=== PATIENT | male | born 1990 | race Caucasian/White ===

== ENCOUNTER 2025-02-17 18:59 | Emergency (ER) | payer BC, SELFPAY ==
[2025-02-17 19:14] VITALS: BP 153/83; PULSE 71; RESP 24; TEMP 36.2; O2SAT 96
--- NOTE | 2025-02-17 19:18 | ED.URI ---
HPI - URI/Sore Throat General Chief Complaint: Upper Respiratory Infection Stated Complaint: strep/sinus patient presents to the [facility] with complaints of nasal congestion, sinus pain, headache, productive cough, and sore throat that began about 8 days ago. Patient reports symptoms significantly worse today. Of note patient did have tonsils removed about 18 months ago and today upon waking this feels like strep from previous episodes. Reports using ucap-zoh-bncfrrm cough cold medication with minimal relief of symptoms. Denies fever, chills, body aches, shortness of breath, nausea, vomiting, diarrhea. Related Data Home Medications ?Medication ?Instructions ?Recorded ?Confirmed ?Last Taken ?Type lisinopril 5 mg tablet 5 mg PO DAILY 02/17/25 02/17/25 Unknown History Allergies Allergy/AdvReac Type Severity Reaction Status Date / Time No Known Allergies Allergy Verified 02/17/25 19:12 Review of Systems Constitutional: Constitutional: Reports as per HPI, Denies chills, Reports fatigue, Denies fever(s) and Denies weakness Eyes: Eyes: Reports no additional eye complaints ENT: Reports as per HPI, Denies vertigo, Denies dizziness, Reports nasal congestion and Reports sore throat Comments: Sinus pain, nasal drainage Respiratory: Respiratory: Reports as per HPI, Reports chest congestion, Reports cough, Denies dyspnea and Denies wheezing Gastrointestinal: Gastrointestinal: Reports no additional gastrointestinal complaints Genitourinary: Genitourinary: Reports no additional male genitourinary complaints Musculoskeletal: Musculoskeletal: Reports as per HPI, Denies back pain and Denies myalgias Integumentary/Breasts: Skin/Breast: Reports as per HPI, Denies pruritus, Denies erythema and Denies rash Neurologic: Reports as per HPI, Denies vertigo, Denies dizziness, Reports headache(s), Denies numbness and Denies weakness Psychiatric: Psychiatric: Reports no additional psychiatric complaints Endocrine: Endocrine: Reports no additional endocrine complaints Hematologic/Lymphatic: Hematologic/Lymphatic: Reports no additional hematologic/lymphatic complaints Allergic/Immunologic: Allergic/Immunologic: Reports no additional allergic/immunologic complaints [facility] Social History Social History Smoking status: Never smoker Alcohol intake: current Substance use: never Substance use type: does not use Living arrangements: with family Occupation/Education: occupation Gender identity (if verbalized by the patient): Male Exam Const: General: healthy appearing and no acute distress Nutritional Appearance: well nourished Orientation/consciousness: patient oriented x3 Limitations: no limitations HENMT: Head: normal to inspection Ears: external ears normal and TM's abnormal bilaterally ( mild dullness bilaterally no erythema noted) Face/Nose/Sinus: Normal external nose present, nares abnormal and no nasal discharge noted Face and sinus: normal facial exam, sinuses tender and sinus tenderness ( bilateral) maxillary Mouth: Yes Normal oral and palatal mucosa present, Yes lip normal and Yes moist mucous membranes Throat: posterior oropharynx abnormal and uvula midline ( erythematous and edematous) Neck: Neck: normal visual inspection and no lymphadenopathy Resp: Effort & Inspection: normal respiratory effort Auscultation: clear to auscultation bilaterally Cardio: Rate: regular rate Rhythm: regular rhythm Skin: General skin exam: normal color Rashes: no rashes Wounds: no wounds Neuro: General: patient oriented x3 Speech: normal speech Gait exam (Neuro): Normal gait present Psych: Mental Status: mental status grossly normal Affect: normal affect Attitude: cooperative Course Course Level of Care: Express Care Visit Vital Signs Vital signs: Vital Signs Temperature 97.1 F L 02/17/25 19:14 Pulse Rate 71 02/17/25 19:14 Respiratory Rate 24 H 02/17/25 19:14 Blood Pressure 153/83 H 02/17/25 19:14 Pulse Oximetry 96 02/17/25 19:14 Oxygen Delivery Room Air 02/17/25 19:14 Temperature 97.1 F L 02/17/25 19:14 Pulse Rate 71 02/17/25 19:14 Respiratory Rate 24 H 02/17/25 19:14 Blood Pressure 153/83 H 02/17/25 19:14 Pulse Oximetry 96 02/17/25 19:14 Oxygen Delivery Room Air 02/17/25 19:14 [facility] Narrative Medical decision making narrative: strep negative 8 days of symptoms likely sinus infection will treat with amoxicillin no culture needed The patient was evaluated by myself in the express care. History is obtained from patient who is an independent historian and physical exam was performed. Available medical records were reviewed at this time. Exam findings show no acute concerns or changes; patient is non-toxic appearing and is in no distress. Patient is appropriate for outpatient treatment and follow-up. I have evaluated and discussed social determinants of health with the patient that could potentially impact subsequent diagnosis and treatment plans. Differential diagnosis and treatment plan were discussed with the patient. Patient agrees with discussion and after shared medical decision making agrees with plan of care. All questions were answered to the patient's satisfaction. Differential Diagnosis Differential Diagnosis: otitis media, sinusitis, upper respiratory infection, strep Medical Records I have reviewed the following patient records and this information was taken into consideration when formulating the assessment and plan.: previous labs, previous ER visits, previous hospitalizations and previous clinic visits Lab Data MDM Lab Attestation statement: I personally reviewed the patient's lab results. Lab results narrative: strep negative, will treat patient no need for culture Discharge Plan Discharge Clinical Impression: Sinusitis Patient Disposition: Home Condition: Stable Instructions: Antibiotic Form, Strep Throat (ED) Additional Instructions: Take the antibiotics as directed for the entire course. Do not miss any doses. What you are taking antibiotics and is recommended to take a probiotic or have yogurt daily to return the good gut bacteria to your system. This can also help with acute diarrhea while taking antibiotics. It can take 24-48 hours for the antibiotics to start to relieve your symptoms continue to take these medications to help with various symptoms: Tylenol or Motrin for pain, headache, or fever Flonase/fluticasone or Nasacort/triamcinolone nasal spray- helps with congestion and nasal drainage. Sudafed/pseudoephedrine helps with sinus pain and congestion. Caution with high blood pressure. Use a humidifier or vaporizer at night. Drink plenty of water. 8-10 glasses per day. Mucinex/guaifenesinas directed and be sure to take with 8oz of water. Warm compresses over the forehead and cheeks to promote sinus drainage. Return to urgent care or go to the ER for new or worsening symptoms. Follow up with Primary provider if not improved after 1 week. Patient Language: [place] Citizen Prescriptions: New amoxicillin-pot clavulanate 875-125 mg tablet 1 tablet PO Q12H Qty: 20 0RF No Action lisinopril 5 mg tablet 5 mg PO DAILY lorazepam [Ativan] 2 mg tablet 1 mg PO TID PRN (Reason: panic attack(s)) Qty: 14 0RF Follow-up/Referrals: Heath Love MD [Primary Care Provider, [facility][1]] Time of Disposition: 19:29
[2025-02-17 19:21] LABS: EDSTREPNEGPOS1 Negative (Negative)
--- OUTSIDE RECORDS SUMMARY | 2025-02-17 19:39 | XMS_ITS | Clinical Summary ---
Author Organization [facility] Address [facility] [address] [place] [address] Care Team Providers Care Boilermaking Supervisor Name Role Phone None, Provider MD Primary Care Provider Unavaila ble Allergies No known active allergies Medications HYDROcodone-acet aminophen (NORCO) 5-325 MG tabletIndication s:Acute Pain < 7 Day Supply Take 1 tablet by mouth every 6 (six) hours as needed for Pain. Indications : Acute Pain < 7 Day Supply 15 tablet 06/10/2022 Active Social History Tobacco Use Types Packs/Day Years Used Date Smoking Tobacco: Never Smokeless Tobacco: Never Tobacco Cessation:Counseling Given: Not Answered Alcohol Use Standard Drinks/Week Comments Not Currently 0 (1 standard drink = 0.6 oz pur e alcohol) Sex and Gender Information Value Date Recorded Sex Assigned at Not on file Legal Sex Male 2:38 PM CDT Gender Identity Not on file Sexual Orientation Not on file Last Filed Vital Signs Vital Sign Reading Time Taken Comments Blood Pressure 126/74 06/10/2022 3:48 PM CDT Pulse 62 06/10/2022 3:48 PM CDT Temperature 36.2 C (97.2 F) 06/10/2022 2:42 PM CDT Respiratory Rate 18 06/10/2022 3:48 PM CDT Oxygen Saturation 98% 06/10/2022 3:48 PM CDT Inhaled Oxygen Concentration - - Weight 120.2 kg (265 lb) 06/10/2022 2:42 PM CDT Height 182.9 cm (6') 06/10/2022 2:42 PM CDT Body Mass Index 35.94 06/10/2022 2:42 PM CDT Plan of Treatment Health Maintenance Due Date Last Done Comments Annual Physical 1993 Hepatitis C 2008 DTaP, Tdap and Td Vaccines ( 1 - Tdap) 2009 Hepatitis B Vaccines (1 of 3 - 19+ 3-dose series) 2009 HPV Vaccines (1 - 3-dose SCD M series) 2017 COVID-19 Vaccine (3 - 2024-2 6 season) 2024 12/22/2020, 12/01/2020 Influenza Adult (#1) 2024 12/24/2019 Hepatitis A Vaccines Aged Out No long er eligible based on patient's age to complete this topic Meningococcal B Vaccine Aged Out No l onger eligible based on patient's age to complete this topic Meningococcal Vaccine Aged Out No vickie deena eligible based on patient's age to complete this topic Pneumococcal Vaccine: Pediatrics (0 to 5 Years) and At-Risk Patients (6 to 49 Years) Aged Out No longer eligible b ased on patient's age to complete this topic RSV Immunizations Under 20 Months Aged Out No longer eligible b ased on patient's age to complete this topic Insurance [employer] Care Teams Boilermaking Supervisor Relationship Specialty Start Date End Date None, Provider, MD PCP - General UNKNOWN PHYSICIAN SPECIALTY 06/10/22
--- OUTSIDE RECORDS SUMMARY | 2025-02-17 19:39 | XMS_ITS | Clinical Summary ---
Author Organization [facility] Address [address] [place] [address] Care Team Providers Care Emergency Specialist Name Role Phone Unavailable Primary Care Provider Unavailabl e Source Comments [facility] [employer],non-owned Affiliates and Associated Physician Practices is amultiple site organization consisting of ambulatory clinics and hospital sitesin [place], [place], [place] and [place]. This disclosure is being madepursuant to the Care Everywhere program and may not contain all information available regarding this patient. Last updated 17.[facility] [employer] Allergies No known active allergies Social History Tobacco Use Types Packs/Day Years Used Date Smoking Tobacco: Never Smokeless Tobacco: Never Tobacco Cessation:Counseling Given: Not Answered Alcohol Use Standard Drinks/Week Comments Never 0 (1 standard drink = 0.6 oz pur e alcohol) AUDIT-C Answer Date Recorded Q1: How often do you have a drink containing alcohol? Never 09/03/2022 Q2: How many drinks containi ng alcohol do you have on a typical day when you are drinking? Patient does not drink Q3: How often do you have si x or more drinks on one occasion? 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 SPECIALIST Gender Identity Not on file Sexual Orientation Not on file Last Filed Vital Signs Vital Sign Reading Time Taken Comments Blood Pressure 134/84 09/03/2022 10:00 PM CDT Pulse 75 09/03/2022 10:00 PM CDT Temperature 36.9 C (98.4 F) 09/03/2022 4:50 PM CDT Respiratory Rate 17 09/03/2022 9:59 PM CDT Oxygen Saturation 98% 09/03/2022 7:30 PM CDT Inhaled Oxygen Concentration - - Weight 121.6 kg (268 lb) 09/03/2022 4:50 PM CDT Height 182.9 cm (6') 09/03/2022 4:50 PM CDT Body Mass Index 36.35 09/03/2022 4:50 PM CDT Plan of Treatment Health Maintenance Due Date Last Done Comments HIV SCREENING 2005 HEPATITIS C SCREENING 06/18/2008 DTAP/TDAP/TD VACCINES (1 - Tdap) 2009 HEPATITIS B VACCINE (1 of 3 - 19+ 3-dose series) 2009 HPV VACCINE (1 - 3-dose SCDM series) 2017 DEPRESSION SCREENING 03/10/2024 COVID-19 VACCINE ( - 2024- season) 2024 12/22/2020, 12/01/2020, 11/10/2020 INFLUENZA VACCINE (#1) 2024 2, 04/13/2021, 12/24/2019, Additional history exists ZOSTER VACCINE (1 of 2) 2040 HIB VACCINE Aged Out No longer eligi ble based on patient's age to complete this topic MENINGOCOCCAL (Group B) VACCINE SHARED DECISION-MAKING Aged Out No longer eligible based on patient's age to complete this topic MENINGOCOCCAL GROUPS A/C/Y/W VACCINE Aged Out No longer eligible based on patient's age to complete this topic PNEUMOCOCCAL VACCINE Aged Out No long er eligible based on patient's age to complete this topic Insurance [employer] Liability [employer] TPL [employer] Liability
--- OUTSIDE RECORDS SUMMARY | 2025-02-17 19:39 | XMS_ITS | Clinical Summary ---
Author Organization [facility] Address [address] [place] [place] [address] Phone Care Team Providers Care Insurance Appraiser Name Role Phone Unavailable Primary Care Provider Unavailabl e Allergies No known active allergies Medications lisinopriL (PRINIVIL) 5 mg tablet Take 5 mg by mouth daily. Active HYDROcodone-james taminophen (NORCO) 5-325 mg tabletIndicatio ns:Acute left ankle pain Take 1-2 Tablets by mouth every 6 hours as needed for Moderate Pain. Max Daily Amount: 8 Tablets 40 Tablet 11/18/2024 2:02 PM CDT 11/18/2024 Active Encounters Date Type Department Care Team Description 01/05/2025 External Device Data [facility]STRACTION Provider, Abstract 01/04/2025 External Device Data [facility] Provider, Abstract 12/28/2024 External Device Data [facility] Provider, Abstract 11/18/2024 10:40 AM CDT Anesthesia Event [facility] Operating Room [address] [place] [address] Mel Hutson MD Jany, Jodi, NP 11/18/2024 10:34 AM CDT - 11/18/2024 12:05 PM CDT Surgery [facility] Operating Room [address] [place] [address] Alvin Philippe MD LEFT ANKLE HARDWARE REMOVAL 11/18/2024 8:08 AM CDT - 11/18/2024 2:40 PM CDT Hospital Encounter [facility] Pre Procedure Phase II [address] [place] [address] Alvin Philippe MD Pain due to internal orthopedic prosthetic device, initial encounter Discharge Disposition: Home or Self Care from Last 3 Months Social History Tobacco Use Types Packs/Day Years Used Date Smoking Tobacco: Never Smokeless Tobacco: Never Tobacco Cessation:Counseling Given: Not Answered Alcohol Use Standard Drinks/Week Comments Not Currently 0 (1 standard drink = 0.6 oz pur e alcohol) Feeling Safe Answer Date Recorded Are you in a relationship wi th someone who hurts you emotionally and/or physically? No 11/18/2024 Sex and Gender Information Value Date Recorded Sex Assigned at Not on file Legal Sex Male 10:33 AM CDT Gender Identity Not on file Sexual Orientation Not on file Last Filed Vital Signs Vital Sign Reading Time Taken Comments Blood Pressure 115/63 11/18/2024 2:15 PM CDT Pulse 75 11/18/2024 2:15 PM CDT Temperature 36.7 C (98 F) 11/18/2024 1:40 PM CDT Respiratory Rate 16 11/18/2024 2:15 PM CDT Oxygen Saturation 95% 11/18/2024 2:15 PM CDT Inhaled Oxygen Concentration - - Weight 127 kg (280 lb) 11/18/2024 8:47 AM CDT Height 182.9 cm (6') 11/18/2024 8:47 AM CDT Body Mass Index 37.97 11/18/2024 8:47 AM CDT Plan of Treatment Health Maintenance Due Date Last Done Comments DTAP/TDAP/TD VACCINES (3 - T d or Tdap) 09/07/2021 09/08/2011, 11/17/2008 INFLUENZA VACCINE (#1) 2024 , 01/22/2023, 01/28/2022, Additional history exists HEPATITIS B VACCINES Completed 06/24/2009, 12/30/2008, 11/21/2008 HPV VACCINES (No Doses Required) Completed Medical Devices Explanted Type Area Raw Scales Operator Device Identifier Shelf Expiration Date Model / Serial / Lot Syndesmosis Tightrope Xp Imp Sys [id number] - [id number] Implanted:Qty: 1 on 04/22/2024 by Alvin Philippe MD at [facility] Explanted:Qty: 1 on 11/18/2024 by Alvin Philippe MD at [facility] Left: Ankle [employer] 10/08/2027 AR-8925T / / [id number] Syndesmosis Tightrope Xp Imp Sys [id number] - [id number] Implanted:Qty: 1 on 04/22/2024 by Alvin Philippe MD at [facility] Explanted:Qty: 1 on 11/18/2024 by Alvin Philippe MD at [facility] Left: Ankle [employer] 10/08/2027 AR-8925T / / [id number] Syndesmosis Tightrope Xp Imp Sys Ar-[id number] - [id number] Explanted:Qty: 1 on 11/18/2024 by Alvin Philippe MD at [facility] Left: Leg [employer] [id number] 06/07/2029 AR-8925T / / [id number] Plate 1/3 Tubular 4hl Lock Ar-[id number]-04 - [id number] Implanted:Qty: 1 on 04/22/2024 by Alvin Philippe MD at [facility] Explanted:Qty: 1 on 11/18/2024 by Alvin Philippe MD at [facility] Plate Left: Ankle [employer] AR-9943T- 04 / / [id number] Description:1X ADD LG Screw Kreulock Ti 3.5x14mm [id number] - [id number] Implanted:Qty: 1 on 04/22/2024 by Alvin Philippe MD at [facility] Explanted:Qty: 1 on 11/18/2024 by Alvin Philippe MD at [facility] Screw Left: Ankle [employer] AR-8935CL -14 / / [id number] Description:VSET [employer] TIT ANIUM ANKLE FX-35 LOAD #[id number] STERILIZED 04-21-2024 Kreulock Screw Ti 3.5 X 16 Implanted:Qty: 1 on 04/22/2024 by Alvin Philippe MD at [facility] Explanted:Qty: 1 on 11/18/2024 by Alvin Philippe MD at [facility] Screw Left: Ankle [employer] AR-8935CL -16 / / [id number] Description:1X ADD LG Procedures Procedure Name Priority Date/Time Associated Diagnosis Comments XR FLUORO LESS THAN 1 HOUR Routine 11/18/2024 12:01 PM CDT NV REMOVAL IMPLANT DEEP 11/18/2024 10:34 AM CDT Pain due to internal orthopedic prosthetic device, initial encounter Special Needs ANES: CHOICE. ARTHREX 1-2 CANNULAED SCREWS / ARTHREX TIGHTROPE. DR POLO 1 HR FOR CASE. ARIELLE BARRERA TO ASSIST. from Last 3 Months Results * XR FLUORO LESS THAN 1 HOUR (11/18/2024 12:01 PM CDT) Anatomical Region Laterality Modality Computed Radiogr aphy 11/18/2024 12:0 2 PM CDT Impressions 11/18/2024 1:47 PM CDT FINDINGS/IMPRESSION: 2 fluoroscopic images are obtained intraoperatively during left ankle hardware removal. See operative report for further details. DICTATION LOCATION: Location [address] [place] [address] Narrative 11/18/2024 1:47 PM CDT EXAMINATION: XR FLUORO LESS THAN 1 HOUR DATE: 11/18/2024 12:01 PM HISTORY: Other - Please see comments; See Reason for Exam Fluoroscopy time: 1.3 minutes REFERENCE AIR KERMA DOSE: 2.15 mGy Procedure Note Carlos Ortiz MD - 11/18/2024 EXAMINATION: XR FLUORO LESS THAN 1 HOUR DATE: 11/18/2024 12:01 PM HISTORY: Other - Please see comments; See Reason for Exam Fluoroscopy time: 1.3 minutes REFERENCE AIR KERMA DOSE: 2.15 mGy FINDINGS/IMPRESSION: 2 fluoroscopic images are obtained intraoperatively during left ankle hardware removal. See operative report for further details. DICTATION LOCATION: Location [address] [place] [address] Alvin Philippe MD DIAGNOSTIC IMAGING ORDERABLES Final Result from Last 3 Months Insurance RX [employer] Commercial [facility] OUT OF STATE Curb Call [facility] Care Teams Insurance Appraiser Relationship Specialty Start Date End Date Yee Mccartney 04/14/24
--- OUTSIDE RECORDS SUMMARY | 2025-02-17 19:39 | XMS_ITS | Patient Health Record ---
Author Organization [facility] Address [address] [place] [address] Care Team Providers Care Electric Clock Mechanic Name Role Phone Gladys Dorman Unavailable [phone] Reason For Referral No Information Medications Medication SIG (Take, Route, Frequency, Duration) Notes Start Date End Date Status LORazepam 0.5 MG Tablet Oral 04/09/2023 Active predniSONE 20 MG Tablet Oral 04/09/2023 Active Amoxicillin 500 MG Capsule Oral 04/09/2023 Active FLUoxetine HCl 10 MG Capsule Oral 04/09/2023 Active Ibuprofen 600 MG Tablet Oral 04/09/2023 Active Social History Social History Additional Details Category Social Info Options Details Migrated Social History Migrated Social History Alcohol Intake: None 04/09/2023,Tobacco Years: Never smoker 04/09/2023 Plan Of Treatment No Information Insurance Providers Payer Name Payer Address Payer Phone Subscriber Number Group Number Insured Name Patient Relationship to Insured Coverage Start Date Coverage End Date [facility] [address] [place] [address] [id number] ARIEL DOMÍNGUEZ Self - patient is the insured
--- OUTSIDE RECORDS SUMMARY | 2025-02-17 19:39 | XMS_ITS | Data Portability ---
Author Organization [place] [facility], Main Office Address [address] [place] [address] Assessment Encounter Date Assessment Date Assessment LastModified by Organization Details LastModified Time 04/16/2023 04/16/2023 Assessment: Very severe [facility] PLMD Hypoventilation Plan: The following were reviewed and explained to the patient: primary care/referral note [facility] with AHI = 60. PAP compliance downloaded and interpreted x 20 minutes. Data reviewed and explained to the patient. Average apnea/hypopnea index (AHI) is 1.1. Patient used PAP > 4 hours 31% of the time. PAP is set at 9-15 cmH2O. PAP will be reset at 10-15 cmH2O. Keep ramp at 10 cmH2O. Turn A-flex on and set at +1. Oxygen supplementation: none Patient is benefiting from PAP therapy. Encouraged patient to maintain PAP use more than 70% of the time. Statement of PAP use and benefits will be sent to the home care store. General information on sleep disordered breathing, evaluation of sleep disordered breathing, treatment with PAP therapy, and living with PAP therapy were covered. PSG is medically necessary to determine the degree of and management of sleep apnea. Split night sleep study ordered. We discussed with the patient the impact of weight on: Sleep disordered breathing Depression/Anxie ty Hypertension COLBY We discussed with the patient the benefit of PAP therapy on: Sleep disordered breathing Depression/Anxie ty Hypertension COLBY Educated the patient on sleep hygiene measures. Relaxing rituals to rest easy, understanding foods with positive and negative impact on sleep, creating a peaceful sleep environment, timing of exercise, using herbal sleep aids, and practicing sleep-friendly meditation were covered. To determine how much sleep is needed, the patient will assess where he falls on the spectrum, examine what lifestyle factors such as work schedules and stress are affecting the quality and quantity of sleep. In general, adults need 7-9 hours of sleep. Educated the patient regarding foods that promote sleep. These include but are not limited to cherries, bananas, toast, oatmeal, and warm milk. Educated the patient regarding foods and drinks to avoid before bedtime. These include but are not limited to aged cheese, chocolate, spicy foods, tomato-based sauces, soy, ginseng tea and processed meat. Advocated influenza vaccination annually and pneumonia vaccination in 2055. Advocated weight loss through diet and exercise. Patient's ideal body weight according to height and gender is up to 195 lbs. Encouraged patient to adjust caloric intake to maintain/achieve ideal body weight, emphasizing on fruits, vegetables, whole grains, and fat-free or low-fat products. These include lean meats, poultry, fish, beans, eggs, and nuts and foods that are low in saturated fats, trans-fats, cholesterol, salt (sodium), and glycemic index. Stressed the importance of regular exercise up to the patient's capacity limits. In this case, we recommend 20 min daily walking, 2 days a week of resistance training. Patient to monitor BP daily and bring records to PCP for further management. Follow-up: 1 week after split night sleep study [email or web address] Not available 04/16/2023 14:35:18 Plan of Treatment Reminders Order Date Submit Date Provider Last Modified By Organization Details Last Modified Time Details Appointments None recorde d. Lab None recorde d. Referral None recorde d. Procedures None recorde d. Surgeries None recorde d. Imaging polysom nogram, split night 04/16/19 24 [email or web address] 5 [facility], [address] [place], [address], 4 11:04:59 Medication Orders None recorde d. Patient TargetsNo targets recorded. Patient InstructionsNo instructions recorded. Reason for Referral None Reported. 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 Medical Equipment None Reported. Allergies No known drug allergies Medications Name Sig Start Date Stop Date Status Note LastModified by Organization Details LastModified Time cyclobenzap rine 10 mg tablet 04/16 completed Not Available Not Available Not Available amoxicillin 500 mg capsule TAKE 1 CAPSULE BY MOUTH EVERY 8 HOURS FOR 10 DAYS active Not Available Not Available No t Available miconazole nitrate 2 % topical cream APPLY TO THE AFFECTED AREA TWICE DAILY 04/16 completed Not Available Not Available Not Available hydrocodone 5 mg-acetamin ophen 325 mg tablet TAKE 1 TABLET BY MOUTH EVERY 6 HOURS NEEDED FOR PAIN 04/16 completed Not Available Not Available Not Available prednisone 20 mg tablet TAKE 2 TABLETS BY MOUTH EVERY DAY FOR 5 DAYS 04/16 completed Not Available Not Available Not Available sulfamethox azole 800 mg-trimetho prim 160 mg tablet TAKE 1 TABLET BY MOUTH TWICE DAILY 04/16 completed Not Available Not Available Not Available lorazepam 0.5 mg tablet TAKE 1 TABLET BY MOUTH EVERY DAY NEEDED FOR ANXIETY 04/16 completed Not Available Not Available Not Available fluoxetine 10 mg capsule TAKE 1 CAPSULE BY MOUTH EVERY DAY 04/16 completed Not Available Not Available Not Available ibuprofen 600 mg tablet TAKE 1 TABLET BY MOUTH EVERY 6 HOURS NEEDED FOR PAIN 04/16 completed Not Available Not Available Not Available ketoconazol e 2 % topical cream APPLY TO THE AFFECTED AREA ONCE DAILY UNTIL CLEAR AND THEN FOR ANOTHER WEEK 04/16 completed Not Available Not Available Not Available sertraline 50 mg tablet 04/16 completed Not Available Not Available Not Available amoxicillin 875 mg-potassiu m clavulanate 125 mg tablet TAKE 1 TABLET BY MOUTH TWICE DAILY 04/16 completed Not Available Not Available Not Available Vitals Date Recorded Heart rate Respiratory rate Provider N nayla and Address Organization Details Last Updated DateTime 04/16/2023 85 /min 15 /min Elijah Bailey MD [address] [facility], [facility] [address], [place], [address], [facility] 04/16/2023 12:29:13 Date Recorded Body height Body mass index (BMI) Body weight Body temperature Heart rate Oxygen saturation Systolic And Diastolic Provider Name and Address Organization Details Last Updated DateTime 182.88 cm 39 kg/m2 119327. 73 g 98.6 [degF] 85 /min 97 % 138/82 mm[Hg] Gisella Mix MA [facility] [employer] [facility] 12:00:48 Social History Question Answer Notes LastModified by Organizat ion Details LastModified Time Tobacco Smoking Status Never Smoker Gisella Mix MA null, [facility] 04/16/2023 12:05:26 What Is Your Level Of Caffeine Consumption? Moderate Information not available 04/16/2023 In The 14 Days Before Symptom Onset, Have You Had Close Contact With A Laboratory-confir med COVID-19 While That Case Was Ill? No Information not available 04/16/2023 In The 14 Days Before Symptom Onset, Have You Had Close Contact With A Person Who Is Under Investigation For COVID-19 While That Person Was Ill? No Information not available 04/16/2023 What Type Of Diet Are You Following? REGULAR Information not available 04/16/2023 Do You Have An Electrostatic Air Filter? No Information not available 04/16/2023 Do You Have A Humidifier? No Information not available 04/16/2023 Where Do You Live? SingleLevelHouse Information not available 04/16/2023 Do You Have Moisture Problems In Your Home? No Information not available 04/16/2023 What Was The Date Of Your Most Recent Tobacco Screening? 04/16/2023 Information not available 04/16/2023 Do You Have Any Pets? Yes Information not available 04/16/2023 Do You Use Your Seat Belt Or Car Seat Routinely? Yes Information not available 04/16/2023 Do You Have Smoke And Carbon Monoxide Detectors In Your Home? Yes Information not available 04/16/2023 Are You Passively Exposed To Smoke? No Information no t available 04/16/2023 Do You Use Sunscreen Routinely? No Information not available 04/16/2023 Have You Recently Traveled Abroad? No Information not available 04/16/2023 Do You Have Any Dietary Restrictions? No Information not available 04/16/2023 How Many Years Have You Used Smokeless Tobacco? 5 Information not available 04/16/2023 Sex: Unknown Functional Status Question Answer Note LastModified by Organizat ion Details LastModified Time Do you use any illicit or recreational drugs? No Information not available 04/16/2023 Do you or have you ever used any other forms of tobacco or nicotine? Yes Chewing tobacco Information not available 04/16/2023 What is your level of alcohol consumption? Occasional Information not available 04/16/2023 Do you or have you ever used smokeless tobacco? Former smokeless tobacco user Information not available 04/16/2023 Have you been exposed to chemicals or toxins? Not that aware of Information not available 04/16/2023 Do you or have you ever used e-cigarettes or vape? Never used electronic cigarettes Information not available 04/16/2023 What is your exercise level? Moderate Information not available 04/16/2023 Mental Status Question Answer Note LastModified by Organization D etails LastModified Time Do you feel stressed (tense, restless, nervous, or anxious, or unable to sleep at night)? [id number] Information not available 04/16/2023 Family History Relationship Description Onset Age of this Age Resolved Age Notes LastModified by Organization Details LastModified Time Maternal Grandmother Obstructive sleep apnea syndrome [email or web address] Not available 2023 12:43:03 Maternal Grandmother Hypertensive disorder [email or web address] Not available 2023 12:43:19 Medical History No medical history recorded. Past Encounters Encounter ID Performer Location Encounter Start Date Encounter Closed Date Diagnosis/Indication Diagnosis SNOMED-CT Code Diagnosis ICD10 Code Diagnosis IMO Codes Diagnosis Note [id number] Elijah Bailey MD [facility] [address] [address] 04/16/2023 11:45:32 04/17/2023 08:36:41 Sleep apnea 87005546 G47.30 G47.33 G47.36 G47.61 Health Concerns Section Related Observation LastModified by Organization Detai ls LastModified Time None Recorded Concern Status LastModified by Organization Details LastModified Time None Recorded Advance Directives Directive None Recorded Payers Insurance Date Sequence Insurance Name Policy Number Policy Reyna Covered Member ID Reyna Member ID Guarantor Name 04/13/2023 1 *SELF PAY* Br ett Harrison Houser 06/30/2024 [employer] - [facility] Ford 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 It was set at 8 cmH2O. When the Respironics Dream Station Auto A-flex unit was recalled and the Respironics Dream Station 2 Auto A-flex unit was sent to me, I increased the CPAP to 10 cmH2O but I am still struggling to get my breath. I have gained at least 30 lbs. from 2017 to 2023. At home since 2021, the patient uses a Respironics Dream Station 2 Auto A-flex unit without heated humidification. The patient does not need the ramp to start low and go up slowly on the pressure anymore. There is some xerostomia in a.m. There is no hose/mask condensation with water.The patient wears a [employer] large Clay full face mask without chin strap. There is no claustrophobia, no nostril/nose bridge irritation, no facial rash, no facial numbness, no nosebleeding. The patient feels more refreshed upon waking and daytime alertness is improved. Energy levels are sustained until early afternoon, around 2 pm. The patient works from 6 am to 6 pm. At home, the patient sleeps from 10 pm to 4:30 am and wakes up with an alarm. Snoring: heavy, since .Snorting: yesChoking: yesCoughing: noGasping: yesGagging: yesSighing: yesWitnessed apnea: yesTwitching or jerking of leg(s), arm(s), body, head: yesTeeth grinding: noTeeth clenching: noSleeptalking: noSleepwalking: noSleep crying: noBedwetting: noTongue/lip/gum/cheek biting: noSleeping with open mouth: yesSleep paralysis: noHypnagogic hallucinations: noHypnopompic hallucinations: noVivid dreams: noDifficulty with sleep onset: noDifficulty with sleep maintenance: yesSleep interruptions: nocturia x 3Patient wakes up with: fatigue, xerostomia, cognitive impairment, mobility impairmentDaytime cataplexy: noMorning hypersomnolence: yesAfternoon hypersomnolence: yesCaffeine sources in diet: coffee 24 oz per day, soda 1 bottle per day, chocolate 1 candy bar per day Associated medical and psychiatric conditions:Congestive heart failure: noCoronary artery disease: noMyocardial infarction: noHypertension: yesStroke: noBronchial asthma: noChronic obstructive pulmonary disease: noDepression: yesBipolar disorder: noAnxiety: yesPanic disorder: noPosttraumatic stress disorder: noAttention deficit and hyperactivity disorder: noObsessive Compulsive disorder: noSchizophrenia: noSchizoaffective disorder: noPersonality disorder: noChronic analgesic use: noChronic sedative/hypnotic use: no EPWORTH SLEEPINESS SCALE (ESS) CHANCE OF DOZING SCORE0 = would never doze1 = slight chance of dozing2 = moderate chance of dozing3 = high chance of dozing SITUATION AND CHANCE OF DOZINGSitting and reading - 2Watching television - 3Sitting inactive in a public place (e.g. a theater or meeting) - 0As a passenger in a car for an hour without a break - 2Lying down to rest in the afternoon when circumstances permit - 3Sitting and talking to someone - 0Sitting quietly after lunch without alcohol - 0In a car, while stopped for a few minutes in the traffic - 0TOTAL SCORE 10Subjectively, patient has a moderate chance of dozing. Elijah Bailey MD [address] [place] [address], [id number], [place] [facility] 04/16/2023 14:36:24
== END 2025-02-17 19:32 | disposition home or self-care (01) ==
PROVIDERS: Emergency Provider Nurse Practitioner Family; PCP Family Medicine
DX: J32.9 Chronic sinusitis, unspecified (principal)
CPT/HCPCS: 87880; 99213; G0463